=== PATIENT | female | born 1965 | race Caucasian/White ===

== ENCOUNTER 2023-04-08 20:31 | Emergency (ER) | payer MEDICAID ==
[~2023-04-08] VITALS: Ht 144.8 cm; Wt 68.0 kg
[2023-04-08 20:52] VITALS: BP 133/67; PULSE 112; RESP 18; TEMP 98.8; O2SAT 99
--- NOTE | 2023-04-08 21:34 | NUR ---
Dr. Arcos examining the Pt .
--- NOTE | 2023-04-08 21:34 | NUR ---
PT WALKED TO BED 03
--- NOTE | 2023-04-08 21:35 | NUR ---
Urine was sent to the Lab
--- NOTE | 2023-04-08 21:35 | NUR ---
Daughter at the bedside
[2023-04-08] MEDS ORDERED: NACL 0.9% 1,000 ML IV ONE (21:45)
--- NOTE | 2023-04-08 21:53 | NUR ---
X ray at the bedside
[2023-04-08 22:36] LABS: BASOPHILS % (AUTO) 0.3 % (0.0-2.0); HEMATOCRIT 42.7 % (36-48); HEMOGLOBIN 14.7 g/dL (12.0-16.0); LYMPHOCYTES # (AUTO) 1.2 K/uL (2.5-16.5); MEAN CORPUSCULAR HEMOGLOBIN 30 pg (27-31); MEAN CORPUSCULAR HGB CONC 35 g/dL (33-37); MONOCYTES # (AUTO) 1.2 K/uL (0.8-1.0); MONOCYTES % (AUTO) 9.1 % (1.7-9.3); NEUTROPHILS # (AUTO) 10.7 K/uL (1.8-7.7); NEUTROPHILS % (AUTO) 81.6 % (42.2-75.2); PLATELET COUNT (AUTO) 235 K/uL (140-450); RED BLOOD CELL COUNT(AUTO) 4.85 MIL/uL (4.20-5.40); RED CELL DISTRIBUTION WIDTH 14.3 % (11.6-13.7); WHITE BLOOD COUNT (AUTO) 13.1 K/uL (4.8-10.8)
[2023-04-08 22:45] LABS: BILIRUBIN,URINE 2+ (NEGATIVE); BLOOD, URINE 2+ (NEGATIVE); COLOR,URINE YELLOW (YELLOW); LEUKOCYTE ESTERASE ,URINE TRACE (NEGATIVE); NITRITE, URINE POSITIVE (NEGATIVE); PH,URINE 5.5 (5.0-9.0); UGLUCOSE TRACE (NEGATIVE)
[2023-04-08 22:57] LABS: ALBUMIN 3.3 g/dL (3.4-5.0); ANION GAP 15.1 (8-16); CARBON DIOXIDE 23.3 mmol/L (21-32); POTASSIUM 3.4 mmol/L (3.5-5.1); TOTAL BILIRUBIN 0.6 mg/dL (0.0-1.0)
[2023-04-08 23:04] LABS: APPEARANCE,URINE CLOUDY (CLEAR)
[2023-04-08 23:05] LABS: RBC,URINE 0-5 /HPF (0-5)
[2023-04-09] MEDS ORDERED: cefTRIAXone 1,000 MG VIAL ONE (00:18)
[2023-04-09] MEDS ORDERED: NITR100C7 PO (01:48)
[2023-04-09 01:55] VITALS: BP 133/67; PULSE 98; RESP 18; TEMP 98.8; O2SAT 99
--- NOTE | 2023-04-09 01:55 | NUR ---
Patient discharged with v/s stable. Written and verbal after care instructions given and explained. Patient alert, oriented and verbalized understanding of instructions. Ambulatory with steady gait. All questions addressed prior to discharge. ID band removed. Patient advised to follow up with PMD. Rx of nitrofurontin given. Patient educated on indication of medication including possible reaction and side effects. Opportunity to ask questions provided and answered.
== END 2023-04-09 01:55 | disposition home or self-care (01) ==
LOC: MED 20:31
DX: N39.0 Urinary tract infection, site not specified (principal); Z79.899 Other long term (current) drug therapy
CPT/HCPCS: 36415; 71045; 80053; 81001; 83605; 85025; 87040; 87086; 96365; 99284; J0696; J7030